=== PATIENT | female | born 1980 | race Caucasian/White ===

== ENCOUNTER 2016-10-24 07:58 | Emergency (ER) | payer MEDICAID ==
[~2016-10-24] VITALS: Ht 165.1 cm; Wt 88.0 kg
[2016-10-24 08:00] VITALS: Ht 165.1 cm; Wt 88.0 kg
--- OUTSIDE RECORDS SUMMARY | 2016-10-24 08:01 | XMS REPORT | CCD ---
Author Author [place] CHRIS Organization Unknown Address [address] [facility] [address] [place], [place] [address] Care Team Providers Care Infection Prevention Specialist Name Role Phone SHAREE PROCTOR MD Attending Physician [phone] SHAREE PROCTOR MD Primary Surgeon [phone] Vital Signs Unknown or Not Available. Allergies Allergy Code Allergy Type Reaction Status OXYCONTIN 732951 Drug allergy Active TAPE 0 Allergy to substance Active OXYCODONE 7804 Drug allergy Active Procedures Procedure Code Procedure Type Date CT ABD AND PELVIS W/WO CONTRAST 410740435 SNOMED CT 2014 CULTURE URINE 933574574 SNOMED CT 12/16/2014 ^CBC W/AUTO DIFF 9121021 SNOMED CT 12/16/[address] 12/16/2014 UA W/MICRO C&S IF IND 106873056 SNOMED CT 12/16/2014 C REACTIVE PROTEIN 51316154 SNOMED CT 12/16/2014 COMPREHENSIVE METABOLIC PANEL 850384002 SNOMED CT 2014 CBC W/ AUTO DIFF (RFLX MAN DIFF IF IND) 6521849 SNOMED CT 12/16/2014 History of Immunizations Unknown or Not Available. Problems Unknown or Not Available. Results COMPREHENSIVE METABOLIC PANEL - Collect Date/Time: 12/16/2014 23:20 Test Name Code Test Result Test Units Test Ref Range GLUCOSE 2345-7 96 MG/DL L=70 H=100 SODIUM 2951-2 141 MEQ/L L=135 H=148 POTASSIUM 2823-3 3.6 MEQ/L L=3.5 H=5.3 CHLORIDE 2075-0 110 MEQ/L L=96 H=110 CO2 2028-9 21 MEQ/L L=22 H=29 BUN 3094-0 20 MG/DL L=8 H=22 CREATININE 2160-0 0.8 MG/DL L=0.6 H=1.6 SGOT/AST 1920-8 12 IU/L L=10 H=40 SGPT/ALT 1742-6 11 IU/L L=8 H=54 ALK PHOS 6768-6 45 IU/L L=35 H=115 TOTAL PROTEIN 2885-2 7.1 G/DL L=5.5 H=8.5 ALBUMIN 1751-7 3.8 G/DL L=3.1 H=5.4 TOTAL BILI 1975-2 0.2 MG/DL L=0.0 H=1.5 CALCIUM 64739-2 8.9 MG/DL L=8.2 H=10.6 AGE 34 yrs GFR NonAA 82 GFR AA 99 eGFR >60 N/A eGFR AA* >60 N/A CBC W/ AUTO DIFF (RFLX MAN DIFF IF IND) - Collect Date/Time: 12/16/2014 23:20 Test Name Code Test Result Test Units Test Ref Range WBC 50007-6 8.3 TH/CMM L=4.5 H=10.8 RBC 789-8 4.45 ML/CMM L=4.20 H=5.40 HGB 718-7 12.2 G/DL L=12.0 H=16.0 HCT 4544-3 38.6 % L=37.0 H=47.0 MCV 87 FL L=81 H=99 MCH 27.4 PG L=27.0 H=33.0 MCHC 31.6 G/DL L=31.0 H=36.0 RDW SD 46 FL L=36 H=50 RDW CV 14.5 % L=0.0 H=14.8 MPV 10.5 FL L=9.3 H=12.5 PLT 777-3 285 TH/CMM L=130 H=440 NRBC# 0.00 TH/CMM L=0.00 H=0.00 NRBC% 0.0 /100WBC L=0.0 H=2.0 %NEUT 60.1 % %LYMP 29.8 % %MONO 6.7 % %EOS 3.0 % %BASO 0.4 % #NEUT 4.99 TH/CMM L=2.10 H=8.20 #LYMP 2.47 TH/CMM L=0.90 H=5.20 #MONO 0.56 TH/CMM L=0.16 H=1.00 #EOS 0.25 TH/CMM L=0.00 H=0.80 #BASO 0.03 TH/CMM L=0.00 H=0.20 MANUAL DIFF NOT IND N/A UA W/MICRO C&S IF IND - Collect Date/Time: 12/16/2014 23:20 Test Name Code Test Result Test Units Test Ref Range COLOR YELLOW N/A NL: YELLOW APPEARANCE HAZY N/A NL: CLEAR SPEC GRAV >=1.030 N/A NL: 1.002 - 1.022 pH 5.5 N/A NL: 5 - 9 PROTEIN NEGATIVE N/A NL: NEGATIVE mg/dl GLUCOSE NEGATIVE N/A NL: NEGATIVE mg/dl KETONE TRACE N/A NL: NEGATIVE mg/dl BILIRUBIN NEGATIVE N/A NL: NEGATIVE BLOOD LARGE N/A NL: NEGATIVE NITRITE NEGATIVE N/A NL: NEGATIVE LEUK SCREEN NEGATIVE N/A NL: NEGATIVE WBC/HPF 5-10 N/A NL: NEGATIVE RBC/HPF 5-10 N/A NL: NEGATIVE CASTS/LPF NEGATIVE N/A NL: NEGATIVE CRYSTALS NEGATIVE N/A NL: NEGATIVE MUCOUS THRDS 3+++ N/A NL: NEGATIVE BACTERIA 1+ N/A NL: NEGATIVE EPITH CELLS 3+++ SQUAMOUS N/A NL: NEGATIVE TRICHOMONAS NEGATIVE N/A NL: NEGATIVE YEAST NEGATIVE N/A NL: NEGATIVE CULT SET UP? YES N/A C REACTIVE PROTEIN - Collect Date/Time: 12/16/2014 23:20 Test Name Code Test Result Test Units Test Ref Range C REACTIVE PROTEIN 1988-5 1.4 MG/DL L=0.0 H= 1.0 TEST - Collect Date/Time: 12/16/2014 23:20 Test Name Code Test Result Test Units Test Ref Range TEST 8- NEGATIVE N/A Active Medications Unknown or Not Available. Medications Administered During Visit Unknown or Not Available. Encounters Encounter Diagnosis Diagnosis Code Start Date ABDOMINAL PAIN, RIGHT LOWER QUAD 79031 12/16/2014 Social History Smoking Status Code Start Date End Date Current every day smoker 249006726 Patient Decision Aids Unknown or Not Available. Discharge Instructions You were admitted to [facility] on 12/16/2014 with a principal diagnosis of ABDOMINAL PAIN, RIGHT LOWER QUAD. You were discharged from [facility] on 12/17/2014. Should you have any questions prior to discharge, please contact a member of your healthcare team. If you have left the hospital and have any questions, please contact your primary care physician. Chief Complaint and Reason For Visit Chief Complaint Date of Onset ABDOMINAL PAIN CHEST PAIN Function Status Unknown or Not Available. Referral/Transition of Care Unknown or Not Available.
--- OUTSIDE RECORDS SUMMARY | 2016-10-24 08:02 | XMS REPORT | Continuity of Care Document ---
Author Author [facility] Address Unknown Phone Unavailable Allergies Medications Problems Date Dx Coded Attending Type Code Diagnosis Diagnosed By 09/20/2013 ESTELITA DICKEY APRN 305.1 TOBACCO ABUSE 09/20/2013 ESTELITA DICKEY APRN 491.21 BRONCHITIS AECB Procedures Code [place] [address] INFLUENZA A & B (IN-HOUSE) 09/20/2013 97645 OXIMETRY 2013 Results Encounters ACCT No. Visit Date/Time Discharge Status Pt. Type Provider Facility Loc./Unit Complaint [id number] 09/20/2013 09:59:00 09/20/2013 23: 59:59 CLS Outpatient ESTELITA DICKEY APRN
--- OUTSIDE RECORDS SUMMARY | 2016-10-24 08:02 | XMS REPORT ---
Author Author Yudi Frances Organization [facility] Address [address] [place], [place] [address] Care Team Providers Care Scada Engineer Name Role Phone Yudi Frances Primary Care Physician Unavailable Allergies and Adverse Reactions Name Reaction Notes Oxycodone Plan of Treatment Planned Activity Comments Planned Date Planned Time Plan/Goal X-RAY EXAM OF ANKLE 12/10/2015 12:00 AM Medications Active Name Start Date Estimated Completion Date SIG Comments Premarin 1.25 mg oral tablet 12/10/2015 06/07/2016 take 1 tablet (1.25 mg) by oral route once daily for 30 days citalopram 20 mg oral tablet 12/10/2015 06/07/2016 take 1 tablet (20 mg) by oral route once daily for 30 days Name Start Date Expiration Date SIG Comments Bactrim DS 800-160 mg oral tablet 10/04/2015 10/14/2015 take 1 tablet by oral route every 12 hours for 10 days Problem List Not available. Vital Signs Date Time BP-Sys(mm[Hg] BP-Cheyenne(mm[Hg]) HR(bpm) RR(rpm) Temp WT HT HC BMI BSA BMI Percentile O2 Sat(%) 02/28/2016 6:37:00 PM 90 bpm 18 rpm 98 F 208 lbs 65 in 34.61 kg/ m2 2.08 m2 99 % 12/10/2015 8:39:00 PM 120 mmHg 90 mmHg 78 bpm 18 rpm 97.1 F 221.6 lbs 65 in 36.8758 kg/m 2.147 m 98 % 10/04/2015 5:27:00 PM 123 mmHg 82 mmHg 86 bpm 20 rpm 98 F 227 lbs 65 in 37.77 kg/m2 2.17 m2 98 % Social History Name Description Comments GED Caffeine Light Alcohol rare Tobacco Current every day smoker History of Procedures Date Ordered Description Order Status 10/04/2015 12:00 AM CULTURE OTHR SPECIMN AEROBIC Returned 12/13/2015 12:00 AM NVR CNDJ TST 1-2 STUDIES Returned Results Summary Not available. History Of Immunizations Not available. History of Past Illness Name Date of Onset Comments Furuncle of cheek Oct 04 2015 5:36PM Right ankle pain Dec 10 2015 8:26PM Numbness and tingling in right hand Dec 10 2015 8:26PM Ankle pain Feb 28 2016 6:38PM Numbness and tingling in right hand Feb 28 2016 6:38PM Carpal tunnel syndrome Feb 28 2016 6:38PM Payers Insurance Name Company Name Plan Name Plan Number Policy Number Policy Group Number Start Date [facility] State Plan [facility] State Plan [id number] Monday, 2013 History of Encounters Visit Date Visit Type Provider 02/28/2016 Office visit Yudi Frances APRN 12/10/2015 Office visit Yudi Frances APRN 10/04/2015 Office visit Leidy Mistry APRN
--- OUTSIDE RECORDS SUMMARY | 2016-10-24 08:02 | XMS REPORT ---
Author Author LULY AMEZCUA [facility] eClinicalWorks Address Unknown Phone Unavailable Care Team Providers Care Tearoom Hostess Name Role Phone LULY AMEZCUA CP Unavailable Allergies No Known Allergies Problems Problem Type Condition Code Onset Dates Condition Status Problem Nondependent tobacco use disorder 305.1 Active Problem Insomnia, unspecified 780.52 Active Problem Obstructive chronic bronchitis, with (acute) exacerbation 491.21 Active Assessment Dental examination V72.2 Active Problem Unspecified site of ankle sprain and strain 845.00 Active Problem Acute upper respiratory infections of unspecified site 465.9 Active Medications No Known Medications Procedures Procedure Coding System Code Date INTRAORL-PERIAPICAL 1 FILM 03928 CPT-4 D0220 Apr 26, 2015 INTRAORL-PERIAPICAL EA ADD FILM CPT-4 D0230 Apr 26, 2015 LTD ORAL EVALUATION - PROBLEM FOCUS CPT-4 D0140 Apr 26, 2015 SURG REMOVAL ERUPTED TOOTH CPT-4 D7210 Apr 26, 2015 EXTRAC ERUPTED TOOTH/EXPOSED ROOT CPT-4 D7140 Apr 26, 2015 Results No Known Results Summary Purpose eClinicalWorks Submission
--- OUTSIDE RECORDS SUMMARY | 2016-10-24 08:02 | XMS REPORT | Continuity of Care Document ---
Author Author Maty [facility] Organization [place] [facility] Address [facility] [address] [place] [address] Phone Unavailable Care Team Providers Care Credit Support Counselor Name Role Phone RADHA LEMONS M.D. Primary Care Physician [phone] Insurance Providers Payer Name Policy Number Subscriber Name Relationship [employer] [facility] [id number] Kyra Matthews 18 Self / Same As Patient Advance Directives Directive Response Recorded Date/Time Advance Directives No 07/14/14 9:48am Living Will No 07/14/14 9:48am Power of Psychologist Experimental for Health Care No 07/14/14 9:48am Organ, Tissue, or Eye Donor Yes 07/14/14 9:48am Do you have a signed organ donor card? No 04/19/14 9:57pm Problems Medical Problems Problem Onset Date Status Encounter for staple removal Unknown Active Post-operative pain Unknown Active Medications Medication Dose Route Sig Days/Qty Instructions Order Date Discontinued Date Status Multivitamins/Iron 1 Ea PO DAILY 04/19/14 07/14/14 Discontinued Ibuprofen Unknown Dose PO Q6H PRN PAIN 04/20/14 07/14/14 Discontinued Acetaminophen/Hydrocodone Bitart (Lortab 5-325*) 1 Each PO EVERY 4-6 HRS NEEDED PAIN 15 Qty 07/19/14 Active Social History Social History Problem Response Recorded Date/Time Smoking Status Current every day smoker 07/14/2014 9:48am Query Response Start Date Stop Date Smoking Status Current every day smoker Hospital Discharge Instructions No hospital discharge instructions. Plan of Care No plan of care. Functional Status Query Response Date Recorded [place] Coma Scale Total 15 September 05, 2014 4:10am Patient Behavior Anxious September 05, 2014 4:10am Allergies, Adverse Reactions, Alerts Allergen Type Severity Reaction Status Last Updated Oxycodone Adverse Reaction Unknown Active 07/14/14 Immunizations Name Given Type Hx Diphtheria, Pertussis, Tetanus Vaccination Unknown Historical Hx Influenza Vaccination No Historical Hx Pneumococcal Vaccination No Historical Vital Signs Acute Vital Signs Vital Response Date/Time Temperature (Fahrenheit) 98.0 degrees F (97.6 - 99.5) Temperature Source Temporal Artery Pulse Rate (adult) 94 bpm (60 - 90) Respiratory Rate 20 bpm (12 - 24) Blood Pressure 118/73 mm Hg O2 Sat by Pulse Oximetry 98 % (90 - 100) Oxygen Delivery Method Pain Intensity 7 Pain Location Body Site Modifier Pain Description Pain Duration > 6 Hours Height 5 ft 5 in Weight 180 lb Body Mass Index 30.0 kg/m^2 Results Test Source Date Result Interp. Ref. Range Comments Urine HCG, Qualitative July 19, 2014 9:40am Negative - Specimen Comments: STAT PREG TEST Other Body Source Scanned Report April 19, 2014 10:02pm OTHER FACILITY DOCUMENTS - Glomerular Filtration Rate Calc April 20, 2014 5:15am 87.3 mL/min N 60.0-128.0 Magnesium Level April 20, 2014 5:15am 1.8 mg/dL N 1.8-2.4 Calcium Level April 20, 2014 5:15am 8.0 mg/dL L 8.8-10.5 Carbon Dioxide Level April 20, 2014 5:15am 24.1 mEq/L N 21-32 Chloride Level April 20, 2014 5:15am 105 mEq/L N 98-107 Potassium Level April 20, 2014 5:15am 3.4 mEq/L L 3.5-5.0 Sodium Level April 20, 2014 5:15am 137 mEq/L N 136-145 Creatinine April 20, 2014 5:15am 0.8 mg/dL N 0.6-1.0 Blood Urea Nitrogen April 20, 2014 5:15am 10 mg/dL N 7-18 Random Glucose April 20, 2014 5:15am 86 mg/dL N 70-110 Basophils # (Auto) April 20, 2014 5:15am 0.1 K/uL N 0.0-0.2 Eosinophils # (Auto) April 20, 2014 5:15am 0.1 K/uL N 0.0-0.7 Monocytes # (Auto) April 20, 2014 5:15am 1.0 K/uL H 0.1-0.6 Lymphocytes # (Auto) April 20, 2014 5:15am 1.2 K/uL N 1.2-3.4 Neutrophils # (Auto) April 20, 2014 5:15am 5.9 K/uL N 2.0-6.9 Basophils (%) (Auto) April 20, 2014 5:15am 1.1 % H 0.0-1.0 Eosinophils (%) (Auto) April 20, 2014 5:15am 0.7 % N 0.0-2.0 Monocytes (%) (Auto) April 20, 2014 5:15am 12.3 % H 1.7-9.3 Lymphocytes (%) (Auto) April 20, 2014 5:15am 14.8 % L 20.5-51.1 Neutrophils (%) (Auto) April 20, 2014 5:15am 71.1 % N 42.2-75.2 Mean Platelet Volume April 20, 2014 5:15am 6.2 fL L 7.4-10.4 Platelet Count April 20, 2014 5:15am 297 K/uL N 130-400 Red Cell Distribution Width April 20, 2014 5:15am 11.3 % L 11.5- 14.5 Mean Corpuscular Hemoglobin Concent April 20, 2014 5:15am 33.1 g/dL N 30.0-37.0 Mean Corpuscular Hemoglobin April 20, 2014 5:15am 27.2 pg N 27.0- 31.0 Mean Corpuscular Volume April 20, 2014 5:15am 82.0 fL N 81.0-99.0 Hematocrit April 20, 2014 5:15am 36.5 % L 37.0-47.0 Hemoglobin April 20, 2014 5:15am 12.1 gm/dL N 12.0-16.0 Red Blood Count April 20, 2014 5:15am 4.46 M/uL N 4.20-5.40 White Blood Count April 20, 2014 5:15am 8.3 K/uL N 4.8-10.8 Procedures Procedure Status Date Provider(s) REMOVAL OF SUPPORT IMPLANT completed 07/19/14 RADHA LEMONS M.D. X-ray of right ankle, three or more views completed 07/13/14 RADHA LEMONS M.D. Encounters Encounter Location Date/Time Departed Emergency Room [place] 09/05/14 4:08am Registered Clinic [place] 07/13/14 2:23pm Recent Diagnosis
--- OUTSIDE RECORDS SUMMARY | 2016-10-24 08:02 | XMS REPORT ---
Author Author Yudi Frances [facility] Address [address] [place], [place] [address] Care Team Providers Care Fish Frog Or Oyster Farmer Name Role Phone Yudi Frances Primary Care Physician Unavailable Allergies and Adverse Reactions Name Reaction Notes Oxycodone Plan of Treatment Planned Activity Comments Planned Date Planned Time Plan/Goal X-RAY EXAM OF ANKLE 12/10/2015 12:00 AM NVR CNDJ TST 1-2 STUDIES 12/13/2015 12:00 AM Medications Active Name Start Date [...] HC BMI BSA BMI Percentile O2 Sat(%) 12/10/2015 8:39:00 PM 120 mmHg 90 mmHg 78 bpm 18 rpm 97.1 F 221.6 lbs 65 in 36.88 kg/m2 2.15 m2 98 % 10/04/2015 5:27:00 PM 123 mmHg 82 mmHg 86 bpm 20 rpm 98 F 227 lbs 65 in 37.7744 kg/m 2.173 m 98 % Social History Name Description Comments GED Caffeine Light Alcohol rare Tobacco Current every day smoker History of Procedures Date Ordered Description Order Status 10/04/2015 12:00 AM CULTURE OTHR SPECIMN AEROBIC Returned Results Summary Not available. History Of Immunizations Not available. History of Past Illness Name Date of Onset Comments Furuncle of cheek Oct 04 2015 5:36PM Right ankle pain Dec 10 2015 8:26PM Numbness and tingling in right hand Dec 10 2015 8:26PM Payers Insurance Name Company Name Plan Name Plan Number Policy Number Policy Group Number Start Date [employer] [place] [employer] [place] [id number] Monday, 2013 History of Encounters Visit Date Visit Type Provider 12/10/2015 Office visit Yudi Frances APRN 10/04/2015 Office visit Leidy Mistry APRN
--- OUTSIDE RECORDS SUMMARY | 2016-10-24 08:02 | XMS REPORT ---
Author Author Leidy Mistry Organization [facility] Address [address] [facility] [address] [place], [place] [address] Care Team Providers Care Outdoor Education Teacher Name Role Phone Leidy Mistry Primary Care Physician Unavailable Allergies and Adverse Reactions Name Reaction Notes Oxycodone Plan of Treatment Not available. Medications Active Name Start Date Estimated Completion Date SIG Comments Premarin 1.25 mg oral tablet take 1 tablet (1.25 mg) by oral route once daily Bactrim DS 800-160 mg oral tablet 10/04/2015 10/14/2015 take 1 tablet by oral route every 12 hours for 10 days Problem List Not available. Vital Signs Date Time BP-Sys(mm[Hg] BP-Cheyenne(mm[Hg]) HR(bpm) RR(rpm) Temp WT HT HC BMI BSA BMI Percentile O2 Sat(%) 10/04/2015 5:27:00 PM 123 mmHg 82 mmHg [...] Furuncle of cheek Oct 04 2015 5:36PM Payers Insurance Name Company Name Plan Name Plan Number Policy Number Policy Group Number Start Date [employer] [place] [employer] [place] Plan [id number] Monday, 2013 History of Encounters Visit Date Visit Type Provider 10/04/2015 Office visit Leidy Mistry APRN
--- NOTE | 2016-10-24 08:32 | NUR ---
DR DIEHL IN
--- NOTE | 2016-10-24 08:39 | ERPDOC ---
Departure Disposition Decision Date: Oct 24, 2016 Disposition Decision Time: 10:53 Disposition: 01 DISCHARGED HOME, SELF-CARE Impression Impression Impression: Primary Impression: Migraine Severity: Moderate Condition: Improved Seen By: Physician only Patient Instructions: Migraine Headache (ED) Problems/Meds/Labs Reviewed?: Yes Medications reviewed and manag: Yes Additional Instructions: Imitrex 100 mg tablet, 1 tablet daily as needed for headache. No more than 3 tablets per week, no more than a total of 9 tablets per month. Please clear this medication with your therapist. It will certainly help with your headaches, but I want to make sure that they approve it as well. Follow up care ordered?: Yes Mental Status: Alert, Oriented Scripts Sumatriptan Succinate (Sumatriptan Succinate) 100 Mg Tablet 1 TAB PO 3XW Y for HEADACHE, #9 TAB 0 Refills Prov: CHRISTINA DIEHL MD 10/24/16 HPI - Headache General Chief Complaint: Headache Stated Complaint: HEADACHE Time Seen by Provider: 08:36 HPI - Headache Initial Comments 36-year-old female with headache. She has history of migraine, has had this headache since Thursday. Positive photophobia, no nausea or vomiting. She did have a prodrome with vision changes prior to the headache onset. She normally takes Imitrex when she has these, but she is admitted to [facility] and they did not let her bring those pills in with her. This headache is similar to previous. Allergies: Coded Allergies: oxycodone (Verified Allergy, Unknown, 10/24/16) Past History Past Medical History Pt denies signifigant PMH Surgical History Denies Surgeries Family History Family PMH: FOUND: diabetes Social History Smoking Status: Current every day smoker Substance Use Type: former substance user, methamphetamine Alcohol Intake: none Record Review Pertinent history updated: Yes Review of Systems Eyes General: photophobia, see HPI Neurological General: see HPI All other Systems All Other Systems: Reviewed and Negative Physical Exam General General Nourishment: well nourished, well developed, appears stated age Distress Description Lites are down, patient has headache. Vitals and Pain First Documented Vital Signs Date Time Temp Pulse Resp B/P Pulse Ox O2 Delivery O2 Flow Rate FiO2 10/24/16 08:00 98.1 85 16 123/86 97 Room Air Weight: Kilograms: 88.000 Height (feet): 5 Height (inches): 5.00 Triage Pain Scale: Normal Exams: Head: Normocephalic w/o trauma Eyes: Pupils are PERRLA w/ EOMI, No scleral icterus, irritation, or foreign bodies noted CV: Regular rate and rhythm, without murmur or gallop, Pulses 2+ all extremities, capillary refill, <2 seconds all ext., no pedal edema noted Abdomen: Bowel sounds positive, soft, non-tender, non-distended, no hepatosplenomegaly, masses or bruits noted Neurologic: Patient is alert, and oriented, cranial nerves, motor/sensory/ cerebellar, exams w/o gross deficits, to observation Psychiatric: Patient exhibits, appropriate attention, emotion and affect Differential Diagnoses Considering: Headache, Headache - Migraine, Headache - Tension/Muscle, Hypertensive Emergency, Sinusitis - Maxillary, Temporal Arteritis, Toothache Progress Results/Orders Orders Procedure Category Date Status Time Sumatriptan (Imitrex) PHA 10/24/16 Complete 08:45 Ketorolac (Toradol) PHA 10/24/16 Complete 08:45 Medications Current ED Medications Sumatriptan Succinate (Imitrex) 100 mg O ONCE PO Last administered on 09:21; Start 10/24/16 at 08:45; Stop 10/24/16 at 08:46; Status DC Ketorolac Tromethamine (Toradol) 60 mg O ONCE IM Last administered on 09:17; Start 10/24/16 at 08:45; Stop 10/24/16 at 08:46; Status DC Progress Progress Patient responded well to 60 mg Toradol IM, 100 mg Imitrex by mouth. Her headache has diminished to 2 out of 10, she is comfortable return back to mirror. I did write a prescription for Imitrex, if they will allow her to have it that is fine. She is to follow up with primary care physician at her convenience. CHRISTINA DIEHL MD Oct 24, 2016 08:39
[2016-10-24] MEDS ORDERED: SUMATRIPTAN 100 MG TABLET PO ONE (08:45)
[2016-10-24] MEDS ORDERED: KETOROLAC 60mg/2ml INJECTION IM ONE (08:45)
--- OUTSIDE RECORDS SUMMARY | 2016-10-24 09:30 | XMS REPORT | Continuity of Care Document ---
Author Author [facility] Organization [place] [facility] Address [facility] [address] [place] [address] Phone Unavailable Care Team Providers Care Supervisor Inspecting Name Role Phone RADHA LEMONS M.D. Primary Care Physician [phone] Insurance Providers Payer Name Policy Number Subscriber Name Relationship [employer] [facility] [id number] Kyra Matthews 18 Self / Same As Patient Advance Directives Directive Response Recorded Date/Time Advance Directives No 07/14/14 9:48am Living Will No 07/14/14 9:48am Power of Railroad Firer for Health Care No 07/14/14 9:48am Organ, [...] care. Functional Status Query Response Date Recorded [place] Coma Scale Total 15 September 05, 2014 [...] Encounters Encounter Location Date/Time Departed Emergency Room [place] 09/05/14 4:08am Registered Clinic [place] 07/13/14 2:23pm Recent Diagnosis
--- OUTSIDE RECORDS SUMMARY | 2016-10-24 09:30 | XMS REPORT | Continuity of Care Document ---
Author Author [facility] Address Unknown Phone Unavailable Allergies Medications Problems Date Dx Coded Attending Type Code Diagnosis Diagnosed By 09/20/2013 ESTELITA DICKEY APRN 305.1 TOBACCO ABUSE 09/20/2013 ESTELITA DICKEY APRN 491.21 BRONCHITIS AECB Procedures Code Description [place] [address] INFLUENZA A & B (IN-HOUSE) 09/20/2013 86085 OXIMETRY 2013 Results Encounters ACCT No. Visit Date/Time Discharge Status Pt. Type Provider Facility Loc./Unit Complaint [id number] 09/20/2013 09:59:00 09/20/2013 23: 59:59 CLS Outpatient ESTELITA DICKEY APRN
[2016-10-24] MEDS ORDERED: SUMA100T18 PO (10:56)
[2016-10-24 11:05] VITALS: BP 116/84; PULSE 77; RESP 20; TEMP 98.1; O2SAT 98
--- NOTE | 2016-10-24 11:05 | NUR ---
DISCHARGE PT GIVEN INSTRUCTIONS FOR CONT OF MIGRAINE HEADACHE W/ RX X1 SUMATRIPTAN SUCCINATE PT VERBALIZED UNDERSTANDING OF CONTENT AND SIGNED FORM, PT ER ALERT AMBULATORY W/O ASSIST CONDITION IMPROVED VS CHARTED IN NO ACUTE DISTRESS TO LOBBY AND CALLED MIRRORS AWAITING RIDE W/O CHANGE.
[2016-11-02] MEDS ORDERED: CLIN300C86 PO (10:49)
== END 2016-10-24 11:05 | disposition home or self-care (01) ==
LOC: ED 07:58
DX: G43.909 Migraine, unspecified, not intractable, without status migrainosus (principal)
CPT/HCPCS: 96372; 99283; J1885